=== PATIENT | female | born 1985 | race Caucasian/White ===

== ENCOUNTER 2020-05-19 11:24 | Emergency (ER) | payer OTHER, SELFPAY ==
[2020-05-19] VITALS (7 sets, daily range): BP systolic 127–140; BP diastolic 83–95; PULSE 67–81; RESP 16–18; TEMP 36.7; O2SAT 98–100
[2020-05-19 12:16] LABS: Basophils Percent Auto 0.4 % (0.2-1.2); Eosinophils Absolute Auto 0.1 K/mm3 (0-0.3); Eosinophils Percent Auto 2.3 % (0-4.4); Hematocrit 28.9 % (37.0-47.0); Hemoglobin 8.7 g/dL (12.0-15.0); Immature Granulocyte Absolute 0.01 K/mm3 (0.00-0.031); Immature Granulocyte Percent A 0.2 % (0-0.5); Immature Platelet Fraction Pct 7.7 % (0.9-11.2); Lymphocytes Absolute Auto 1.47 K/mm3 (0.9-3.2); Lymphocytes Percent Auto 30.2 % (18.3-44.2); Mean Corpuscular HGB Conc 30.1 g/dl (32-36); Mean Corpuscular Hemoglobin 22.8 pg (26-34); Mean Corpuscular Volume 75.7 fl (80-100); Mean Platelet Volume 13.3 fl (7.4-10.4); Monocytes Absolute Auto 0.2 K/mm3 (0.1-0.6); Monocytes Percent Auto 4.1 % (2.6-8.5); Neutrophils Absolute Auto 3.1 K/mm3 (1.3-6.7); Neutrophils Percent Auto 62.8 % (45.5-73.1); Platelet Count Result 192 k/mm3 (150-375); Red Blood Count 3.82 M/mm3 (4.2-5.4); Red Cell Distribution Width 16.6 % (11.5-14.5); White Blood Count 4.9 K/mm3 (4.5-10.0)
[2020-05-19 12:20] LABS: Add Urine Microscopic? YES; Appearance Urine Clear (Clear); Bacteria Urine Trace /hpf; Bilirubin Urine Negative (Negative); Blood Urine 2+ (Negative); Color Urine Straw (Yellow); Glucose Urine UA Negative (Negative); Ketones Urine Negative (Negative); Leukocyte Esterase Ur Trace LEU/UL (Negative); Mucus Urine Rare /lpf; Nitrate Urine Negative (Negative); Protein Urine Negative (Negative); Squamous Epithelial Cell Urine Moderate /hpf (Few); Urobilinogen Urine Negative mg/dL (<2.0)
[2020-05-19 12:24] LABS: INR 1.1; Prothrombin Time 13.8 Seconds (11.1-14.7)
[2020-05-19 12:25] LABS: Partial Thromboplastin Time 29.9 SECONDS (22.3-36.8)
[2020-05-19 12:28] LABS: Alanine Aminotransferase 14 U/L (4-35); Albumin Level 4.5 g/dL (3.5-5.1); Alkaline Phosphatase 67 U/L (38-126); Anion Gap 12.2 mmol/L (7-16); Aspartate Amino Transferase 24 U/L (14-36); Bilirubin,Total 0.4 mg/dL (0.2-1.3); Blood Urea Nitrogen 9 mg/dL (7-17); Carbon Dioxide 26 mmol/L (22-30); Chloride 104 mmol/L (98-107); Estimated CRCL calculation 63 ml/min; Estimated Glomerular Filt Rate > 60; Glucose 88 mg/dL (65-105); Potassium 3.2 mmol/L (3.4-5.0); Sodium 139 mmol/L (137-145)
--- NOTE | 2020-05-19 14:12 | ED.FEMALEGU ---
HPI - Female Genitourinary General Chief complaint: Vaginal Bleeding Stated complaint: HEAVY VAG BLEED, HX ANEMIA Time Seen by Provider: 05/19/20 11:50 Source: patient Mode of arrival: ambulatory Limitations: no limitations History of Present Illness HPI Narrative: Patient presents to the emergency department for evaluation of heavy menstrual bleeding and fatigue. Patient states that she typically has heavy menstrual periods which are managed by Dr. Sandra however she also feels that she was unable to follow-up with her in the office. Patient states her menstrual periods sometimes last 2 weeks at a time. She began that her current menstrual. Began on Tuesday and was very heavy and required her to change her pad every hour. Patient states yesterday her bleeding became less but she has noticed some fatigue so she wanted her blood work evaluated as she has a history of anemia. Patient reports having a tubal ligation socially denies thought of . Patient denies any fever, chills, nausea, vomiting, neurological deficits, weakness, chest pain, shortness of breath at this time. Patient states that she has been able to eat and drink normally. Patient denies any other concerns. Related Data Allergies Allergy/AdvReac Type Severity Reaction Status Date / Time No Known Allergies Allergy Unknown Verified 10/04/19 17:23 Review of Systems Review of Systems: Narrative: CONSTITUTIONAL: Reports fatigue denies fever, chills, or sweats. EYES: Denies visual changes, redness, or discharge. ENT: Denies rhinorrhea, congestion, sore throat, or otalgia. CARDIOVASCULAR: Denies chest pain, palpitations, or edema. RESPIRATORY: Denies cough or dyspnea. GASTROINTESTINAL: Denies abdominal pain, nausea, vomiting, or diarrhea. GENITOURINARY: Reports vaginal bleeding denies dysuria or hematuria. SKIN: Denies rash or itching. MUSCULOSKELETAL: Denies back pain, joint pain, or myalgia. NEUROLOGIC: Denies headache, numbness, dizziness, or weakness. PSYCHIATRIC: Denies anxiety or depression. [facility] Past Medical History Medical History (Updated 05/19/20 @ 14:14 by Maria Elena Freeman PA-C) Anemia Tubal ligation evaluation Social History Social History Gender identity (if verbalized by the patient): Female Exam Narrative: Exam Narrative: GENERAL: Well-appearing, well-nourished, and in no acute distress. HEAD: Normocephalic, atraumatic. EYES: PERRLA and EOMI. ENT: Nares clear, no rhinorrhea or epistaxis. Mucous membranes moist. Oropharynx without tonsillar hypertrophy exudate or other lesions. Bilateral TMs pearly gonzalez nonbulging NECK: Supple. No adenopathy or masses. CHEST: Clear to auscultation. No respiratory distress. No wheezes rales or rhonchi HEART: Regular rate and rhythm. ABDOMEN: Soft, nontender, nondistended, normal active bowel sounds. PELVIC: Cervix appears normal without cervical motion tenderness. There is minimal bleeding coming from the cervix and minimal small blood clots noted in the vaginal vault. EXTREMITIES: Normal range of motion. No edema. SKIN: Warm, dry, no rash. NEURO: No focal deficits. Alert and oriented x3. PSYCH: Normal mood and affect. Course Vital Signs Vital signs: Vital Signs Temperature 98.0 F 05/19/20 11:27 Pulse Rate 79 05/19/20 11:27 Respiratory Rate 16 05/19/20 11:27 Blood Pressure 134/88 05/19/20 11:27 Pulse Oximetry 100 05/19/20 11:27 Temperature 98.0 F 05/19/20 11:27 Pulse Rate 77 05/19/20 13:37 Respiratory Rate 18 05/19/20 13:37 Blood Pressure 128/88 05/19/20 13:37 Pulse Oximetry 98 05/19/20 13:37 MDM - Female Genitourinary MDM Narrative Medical decision making narrative: Patient vitals are stable. Patient does not have profuse vaginal bleeding. She did not have chest pain, shortness of breath, fever, chills she is not orthostatic. She is anemic but does not require transfusion at this time. Patient has
== END 2020-05-19 14:13 | disposition home or self-care (01) ==
PROVIDERS: Physician Assistant; Emergency Provider Emergency Medicine; PCP Family Medicine
DX: N93.9 Abnormal uterine and vaginal bleeding, unspecified (principal); D64.9 Anemia, unspecified
CPT/HCPCS: 36415; 80053; 81001; 81025; 85025; 85055; 85610; 85730; 99284

== ENCOUNTER 2020-09-09 16:24 | Emergency (ER) | payer OTHER, SELFPAY ==
--- NOTE | ~2020-09-09 | CT_ITS ---
EXAMINATION: CT abdomen pelvis wo con DATE: 09/09/2020 18:47 INDICATION: Right flank pain and nausea. TECHNIQUE: Computed tomography (CT) of the abdomen and pelvis was performed without intravenous contr ast. Automated exposure control and iterative reconstruction technique were employed. The dose-length product was 267.07 mGy-cm. COMPARISON: 01/17/2015 FINDINGS: Lung bases are clear. Heart size is normal. No pericardial or pleural effusion. Cholecystectomy clips at the gallbladder fossa. Liver, spleen, pancreas and bilateral adrenal glands are normal. Bilateral nonobstructing nephrolithiasis with 7 stones measuring up to 2 mm in the right kidney and at least 9 stones in the left kidney the largest measuring 3 mm. No hydronephrosis or stones seen along the cou rse of the ureters. There is cortical scarring at the left kidney likely represent sequela of prior i nfection or less likely infarction. Bladder, anteverted uterus and bilateral adnexa are unremarkable. A few phleboliths in the pelvis. Bowels including the appendix are normal. No free intraperitoneal g as or fluid. No pathologically enlarged abdominal or pelvic lymphadenopathy. Bones are unremarkable. IMPRESSION: 1. Bilateral nonobstructing nephrolithiasis. No ureteral stones or hydronephrosis. 2. Normal appendix and status post cholecystectomy. Reviewed, dictated and finalized at location H. BURNER IMPRESSION: 1. Bilateral nonobstructing nephrolithiasis. No ureteral stones or hydronephros is. 2. Normal appendix and status post cholecystectomy.
[2020-09-09 16:38] VITALS: BP 160/98; PULSE 95; RESP 14; TEMP 36.7; O2SAT 99
[2020-09-09 16:54] LABS: Add Urine Microscopic? NO; Appearance Urine Clear (Clear); Bilirubin Urine Negative (Negative); Blood Urine Negative (Negative); Color Urine Colorless (Yellow); Glucose Urine UA Negative (Negative); Ketones Urine Negative (Negative); Leukocyte Esterase Ur Negative LEU/UL (Negative); Nitrate Urine Negative (Negative); Protein Urine Negative (Negative); Specific Grav Ur 1.005 (1.001-1.035); Urobilinogen Urine Negative mg/dL (<2.0)
[2020-09-09] MEDS: KETOROLAC 30 MG/ML VIAL (*BKC) IM (18:33)
--- NOTE | 2020-09-09 19:11 | ED.ABDPAIN ---
HPI - Abdominal Pain General Chief Complaint: Urogenital-Female Stated Complaint: UTI symptoms Time Seen by Provider: 09/09/20 16:43 Source: patient Mode of arrival: ambulatory Limitations: no limitations History of Present Illness HPI narrative: Patient presents with chief complaint of right lower back/flank pain that began today today. Patient states she has a history of both urinary tract infections as well as kidney stones. Patient states she normally goes to the bathroom frequently so she has not seen a change in this. She denies bladder discomfort or noted blood in her urine. She denies dysuria. Patient states that she feels her symptoms are more similar to UTI versus kidney stones. She denies vomiting, diarrhea, abdominal pain. Patient denies she has a due to tubal ligation. Related Data Allergies Allergy/AdvReac Type Severity Reaction Status Date / Time No Known Allergies Allergy Unknown Verified 10/04/19 17:23 Review of Systems Review of Systems: Narrative: CONSTITUTIONAL: Denies fever, chills, or sweats. EYES: Denies visual changes, redness, or discharge. ENT: Denies rhinorrhea, congestion, sore throat, or otalgia. CARDIOVASCULAR: Denies chest pain, palpitations, or edema. RESPIRATORY: Denies cough or dyspnea. GASTROINTESTINAL: Denies abdominal pain, nausea, vomiting, or diarrhea. GENITOURINARY: Denies dysuria or hematuria. SKIN: Denies rash or itching. MUSCULOSKELETAL: Reports right flank and low back pain denies joint pain, or myalgia. NEUROLOGIC: Denies headache, numbness, dizziness, or weakness. PSYCHIATRIC: Denies anxiety or depression. [facility] Past Medical History Medical History (Updated 09/09/20 @ 19:15 by Maria Elena Freeman PA-C) Anemia Tubal ligation evaluation Social History Social History Gender identity (if verbalized by the patient): Female Exam Narrative: Exam Narrative: GENERAL: Well-appearing, well-nourished, and in no acute distress. HEAD: Normocephalic, atraumatic. EYES: PERRLA and EOMI. CHEST: Clear to auscultation. No respiratory distress. No wheezes rales or rhonchi HEART: Regular rate and rhythm. No murmur heard. Normal peripheral pulses. ABDOMEN: Soft, nontender even over the bladder, nondistended, normal active bowel sounds.Tenderness with percussion of right flank EXTREMITIES: Normal range of motion. No edema. SKIN: Warm, dry, no rash. NEURO: No focal deficits. Alert and oriented x3. PSYCH: Normal mood and affect. Course Vital Signs Vital signs: Vital Signs Temperature 98.1 F 09/09/20 16:38 Pulse Rate 95 09/09/20 16:38 Respiratory Rate 14 09/09/20 16:38 Blood Pressure 160/98 H 09/09/20 16:38 Pulse Oximetry 99 09/09/20 16:38 Temperature 98.1 F 09/09/20 16:38 Pulse Rate 95 09/09/20 16:38 Respiratory Rate 14 09/09/20 16:38 Blood Pressure 160/98 H 09/09/20 16:38 Pulse Oximetry 99 09/09/20 16:38 MDM - Abdominal Pain MDM Narrative Medical decision making narrative: Patient urine was negative for signs of urinary tract infection patient is now agreeable for CT scan to rule out kidney stone that she has a history. There are multiple nephrolithiasis noted on patient's CT however they are no engaged urolithiasis. Patient was confirmed with me for muscle spasm. Patient will be prescribed naproxen and cyclobenzaprine and instructed to follow-up with her primary care for further investigation. Differential Diagnosis Differential diagnosis: Likely abdominal pain, acute appendicitis, calculus of kidney, constipation, diverticulitis, endometriosis, gastroenteritis, pancreatitis and small bowel obstruction Lab Data Labs: Lab Results 09/09/20 Range/Units 16:46 Urine Color Colorless (Yellow) Urine Appearance Clear (Clear) Urine pH 6.0 (5.0-9.0) Ur Specific [place] 1.005 (1.001-1.035) Urine Protein Negative (Negative) mg/dL Urine Glucose (UA) Negative (Negativ
[2020-09-09 19:47] VITALS: BP 138/96; PULSE 83; RESP 18; TEMP 36.6; O2SAT 100
== END 2020-09-09 19:47 | disposition home or self-care (01) ==
PROVIDERS: Family Medicine; Emergency Provider Emergency Medicine; PCP Family Medicine
DX: M62.830 Muscle spasm of back (principal); N20.0 Calculus of kidney; Z86.2 Personal history of diseases of the blood and blood-forming organs and certain disorders involving the immune mechanism
CPT/HCPCS: 74176; 81003; 81025; 96372; 99284; J1885

== ENCOUNTER 2021-07-24 15:54 | Emergency (ER) | payer OTHER, SELFPAY ==
[2021-07-24 16:00] VITALS: BP 157/100; PULSE 98; RESP 14; TEMP 36.6; O2SAT 100
--- NOTE | 2021-07-24 18:06 | ED.GENADULT ---
HPI - General Adult General Chief complaint: Wound/Laceration Stated complaint: sore on back Time Seen by Provider: 07/24/21 17:32 Source: patient Mode of arrival: ambulatory Limitations: no limitations History of Present Illness HPI narrative: Patient is here for evaluation of a lesion on her back that is been there about a week. She said it started as a bump and then flattened out and now has a scab. It is painful to touch, and when you touch it she gets an electric-like feeling in her arms and her legs. She denies any fever, no itching. She did have chickenpox as a child. Onset (ago): week(s) Associated symptoms: denies other symptoms Related Data Allergies Allergy/AdvReac Type Severity Reaction Status Date / Time No Known Allergies Allergy Unknown Verified 10/04/19 17:23 Review of Systems Review of Systems: All systems reviewed & are unremarkable except as noted in HPI and below PMFSH Past Medical History Medical History Anemia Tubal ligation evaluation Social History Social History Gender identity (if verbalized by the patient): Female Exam Const: General: no acute distress and alert Orientation/consciousness: patient oriented x3 HENMT: Head: normal to inspection Eyes: Pupils: Equal, round and reactive pupils present Resp: Effort & Inspection: normal respiratory effort Cardio: Rate: regular rate Rhythm: regular rhythm Back/Spine/Pelvis: Back: no CVA tenderness Skin: General skin exam: normal color Wounds: wounds noted (healing lesions over L3-4. ~ 1 cm. ) Neuro: General: patient oriented x3 Extrem: General: normal to inspection Psych: Mental Status: mental status grossly normal Course Course Emergency Course: Discussed the possibility that this is an initial lesion associated with shingles with the patient. Recommend that she watch closely should she have any more lesions she should contact her physician right away. Other differential would be a healing abscess, there is no palpable circumference. At this time we will just treat with antibiotic ointment topically and follow. Vital Signs Vital signs: Vital Signs Temperature 36.6 C 07/24/21 16:00 Pulse Rate 98 07/24/21 16:00 Respiratory Rate 14 07/24/21 16:00 Blood Pressure 157/100 H 07/24/21 16:00 Pulse Oximetry 100 07/24/21 16:00 Temperature 36.6 C 07/24/21 16:00 Pulse Rate 98 07/24/21 16:00 Respiratory Rate 14 07/24/21 16:00 Blood Pressure 157/100 H 07/24/21 16:00 Pulse Oximetry 100 07/24/21 16:00 Medical Decision Making Vital Signs Vital Signs: Vital Signs Temperature 36.6 C 07/24/21 16:00 Pulse Rate 98 07/24/21 16:00 Respiratory Rate 14 07/24/21 16:00 Blood Pressure 157/100 H 07/24/21 16:00 Pulse Oximetry 100 07/24/21 16:00 Temperature 36.6 C 07/24/21 16:00 Pulse Rate 98 07/24/21 16:00 Respiratory Rate 14 07/24/21 16:00 Blood Pressure 157/100 H 07/24/21 16:00 Pulse Oximetry 100 07/24/21 16:00 Discharge Plan Discharge Clinical Impression: Skin lesion of back Patient Disposition: Home, Self-Care Condition: Stable Instructions: Antibiotic Form, Abrasion (ED) Additional Instructions: Etiology of your wound is unclear, as discussed watch closely for other lesions as this may be the beginning of a shingles outbreak. Should that occur please call your physician right away for further treatment. You may treat the wound right now with antibiotic ointment. Prescriptions: No Action fluticasone propionate 50 mcg/actuation spray,suspension 2 spray NASAL DAILY 14 Days Qty: 9.9 RF: 0 naproxen 500 mg tablet 500 mg PO BID PRN (Reason: pain) Qty: 20 RF: 0 cyclobenzaprine 10 mg tablet 10 mg PO TID PRN (Reason: muscle spasm) Qty: 20 RF: 0 Follow-up/Referrals: Harms,Josef Mills M.D. [Primary Care Provider] - Time o
[2021-07-24 18:40] VITALS: BP 160/70; PULSE 70; RESP 16; O2SAT 99
== END 2021-07-24 18:42 | disposition home or self-care (01) ==
PROVIDERS: Emergency Provider Emergency Medicine; PCP Family Medicine
DX: L98.9 Disorder of the skin and subcutaneous tissue, unspecified (principal); Z86.2 Personal history of diseases of the blood and blood-forming organs and certain disorders involving the immune mechanism
CPT/HCPCS: 99281

== ENCOUNTER 2021-10-08 16:04 | Emergency (ER) | payer OTHER, SELFPAY ==
[2021-10-08 16:07] VITALS: BP 169/121; PULSE 94; RESP 20; TEMP 36.3; O2SAT 100
[2021-10-08 16:25] VITALS: BP 161/100; PULSE 106; RESP 16; O2SAT 99
[2021-10-08 17:03] LABS: Anion Gap 10 mmol/L (8-16); Blood Urea Nitrogen 15 mg/dL (7-17); Calcium 10.7 mg/dL (8.4-10.2); Carbon Dioxide 28 mmol/L (22-30); Chloride 96 mmol/L (98-107); Estimated CRCL calculation 64 ml/min; Estimated Glomerular Filt Rate 56; Glucose 97 mg/dL (65-110); Magnesium 1.6 mg/dL (1.6-2.3); Potassium 2.9 mmol/L (3.4-5.0); Sodium 134 mmol/L (137-145)
--- NOTE | 2021-10-08 17:11 | ED.GENADULT ---
HPI - General Adult General Chief complaint: Recheck/Abnormal Lab/Rx Stated complaint: Nausea Time Seen by Provider: 10/08/21 16:12 History of Present Illness HPI narrative: Patient is a 36-year-old female who presents ER regarding her elevated blood pressures. She was at an urgent care earlier to receive a Covid test because she has been feeling nauseous and having diarrhea. She is not vaccinated and has been having some diarrhea. No runny nose or sore throat or cough. No shortness of breath. She is not vaccinated for Covid. Her rapid test was negative and nobody sent to PCR. She has no known exposures. She was told that her systolic and diastolic blood pressures were elevated she should be evaluated further. She has never been diagnosed with hypertension has never taken any medication for it. Related Data Allergies Allergy/AdvReac Type Severity Reaction Status Date / Time No Known Allergies Allergy Unknown Verified 10/04/19 17:23 Review of Systems Review of Systems: All systems reviewed & are unremarkable except as noted in HPI and below Constitutional: Constitutional: Denies chills, Denies fever(s) and Denies weakness ENT: Denies nasal congestion and Denies sore throat Cardiovascular: Cardiovascular: Denies chest pain, Denies rapid heart rate and Denies radiating jaw, neck or arm pain Respiratory: Respiratory: Denies cough, Denies dyspnea and Denies wheezing Gastrointestinal: Gastrointestinal: Denies abdominal pain, Reports diarrhea, Reports nausea and Denies vomiting Genitourinary: Genitourinary: Denies nocturia, Denies dysuria and Denies flank pain PMFSH Past Medical History Medical History (Updated 10/08/21 @ 17:27 by Luisito Coughlin MD) Anemia Tubal ligation evaluation Surgical History Surgical History (Updated 10/08/21 @ 17:27 by Luisito Coughlin MD) History of cholecystectomy Social History Social History Gender identity (if verbalized by the patient): Female Exam Narrative: GENERAL: Well-appearing, well-nourished, and in no acute distress. HEAD: Normocephalic, atraumatic. CHEST: Clear to auscultation. No respiratory distress. HEART: Regular rate and rhythm. Normal peripheral pulses. EXTREMITIES: Normal range of motion. No edema. SKIN: Warm, dry, no rash. NEURO: Alert and oriented x3. PSYCH: Normal mood and affect. Course Course Emergency Course: Patient informed of results. Discussed the hypokalemia as well as slight elevation of the kidney function. Blood pressure has been persistently in the 160s over 100s. Will start patient on amlodipine. Encouraged her to follow-up with her PCP for further evaluation and possible augmentation of medication. Vital Signs Vital signs: Vital Signs Temperature 97.4 F L 10/08/21 16:07 Pulse Rate 94 10/08/21 16:07 Respiratory Rate 20 10/08/21 16:07 Blood Pressure 169/121 H 10/08/21 16:07 Pulse Oximetry 100 10/08/21 16:07 Temperature 97.4 F L 10/08/21 16:07 Pulse Rate 106 H 10/08/21 16:25 Respiratory Rate 16 10/08/21 16:25 Blood Pressure 161/100 H 10/08/21 16:25 Pulse Oximetry 99 10/08/21 16:25 Medical Decision Making Vital Signs Vital Signs: Vital Signs Temperature 97.4 F L 10/08/21 16:07 Pulse Rate 94 10/08/21 16:07 Respiratory Rate 20 10/08/21 16:07 Blood Pressure 169/121 H 10/08/21 16:07 Pulse Oximetry 100 10/08/21 16:07 Temperature 97.4 F L 10/08/21 16:07 Pulse Rate 106 H 10/08/21 16:25 Respiratory Rate 16 10/08/21 16:25 Blood Pressure 161/100 H 10/08/21 16:25 Pulse Oximetry 99 10/08/21 16:25 Lab Data Result diagrams: 10/08/21 16:47 Labs: Lab Results 10/08/21 Range/Units 16:47 Sodium 134 L (137-145) mmol/L Potassium 2.9 L (3.4-5.0) mmol/L Chloride 96 L (98-107) mmol/L Carbon Dioxide 28 (22-30) mmol/L Anion Gap 10 (8-16) mmol/L BUN 15 D (7-17) mg/dL Creatini
== END 2021-10-08 17:39 | disposition home or self-care (01) ==
PROVIDERS: Emergency Provider Emergency Medicine; PCP Family Medicine
DX: I10 Essential (primary) hypertension (principal); E87.6 Hypokalemia; Z86.2 Personal history of diseases of the blood and blood-forming organs and certain disorders involving the immune mechanism
CPT/HCPCS: 36415; 80048; 83735; 99283

== ENCOUNTER 2021-10-11 18:29 | Emergency (ER) | payer OTHER, SELFPAY ==
[2021-10-11] VITALS (10 sets, daily range): BP systolic 144–176; BP diastolic 95–113; PULSE 80–101; RESP 10–49; TEMP 36.4; O2SAT 99–100
--- NOTE | ~2021-10-11 | XR_ITS ---
EXAMINATION: XR chest 2V DATE: 10/11/2021 19:05 INDICATION: Chest pain/tightness and right arm tingling TECHNIQUE: frontal and lateral views of the chest were obtained. COMPARISON: None FINDINGS: Couple small calcified nodules in the right lung consistent with old granulomatous disease. No other airspace opacities, pulmonary edema, pleural effusion or pneumothorax. The cardiomediastinal silhouet te is normal. Mild thoracic spondylosis. IMPRESSION: 1. No acute cardiopulmonary disease. Reviewed, dictated and finalized at location H. CHEESE WORKER
--- NOTE | ~2021-10-11 | CT_ITS ---
EXAMINATION: CTA chest PE protocol DATE: 10/12/2021 00:41 INDICATION: Chest pain. Shortness of breath. TECHNIQUE: Computed tomography angiography (CTA) of the chest was performed with 100 mL Omnipaque-350 intravenous contrast timed to evaluate the pulmonary arteries. Coronal maximum intensity projection 3D-reconstructions were created by the technologist. Automated exposure control and iterative reconst ruction technique were employed. The dose-length product was 274.35 mGy-cm. COMPARISON: CT abdomen and pelvis 09/09/2020 FINDINGS: The lungs demonstrate minimal atelectasis. Calcified right lung nodules are consistent with old granulomatous disease. No pleural effusion. The heart size is normal. No pericardial effusion. T here is no pulmonary embolus. There is diffuse hepatic steatosis. There is mild atrophy of left kidne y. There are multiple stones in the kidneys measuring up to 8 mm on the left. There is mild thoracic spondylosis. IMPRESSION: 1. No pulmonary embolus. Sensitivity and specificity are mildly decreased by motion artifact. 2. Diffuse hepatic steatosis. 3. Bilateral nonobstructing kidney stones. Reviewed, dictated and finalized at location B. ENSATION AND BENEFITS ADVISOR IMPRESSION: 1. No pulmonary embolus. Sensitivity and specificity are mildly decreased by mo tion artifact. 2. Diffuse hepatic steatosis. 3. Bilateral nonobstructing kidney stones.
--- NOTE | 2021-10-11 18:31 | ECG_ITS ---
Measurements Intervals [place] Rate: 106 P: 44 PA: 122 QRS: 54 QRSD: 85 T: 38 QT: 356 QTc: 473 Interpretive Statements SINUS TACHYCARDIA BASELINE ARTIFACT- V2-V3, V5 BORDERLINE ECG Electronically Signed On 10-11-2021 20:13:53 SDV PILOT/NAVIGATOR/DDS OPERATOR by Haroon Engel D.O.
[2021-10-11 18:59] LABS: Basophils Percent Auto 0.6 % (0.2-1.2); Eosinophils Absolute Auto 0.1 K/mm3 (0-0.3); Hematocrit 34.8 % (37.0-47.0); Hemoglobin 10.7 g/dL (12.0-15.0); Immature Granulocyte Absolute 0.02 K/mm3 (0.00-0.031); Immature Granulocyte Percent A 0.3 % (0-0.5); Mean Corpuscular HGB Conc 30.7 g/dl (32-36); Mean Corpuscular Hemoglobin 25.2 pg (26-34); Mean Corpuscular Volume 81.9 fl (80-100); Mean Platelet Volume 10.6 fl (7.4-10.4); Monocytes Absolute Auto 0.4 K/mm3 (0.1-0.6); Monocytes Percent Auto 6.2 % (2.6-8.5); Neutrophils Absolute Auto 5.4 K/mm3 (1.3-6.7); Neutrophils Percent Auto 77.9 % (45.5-73.1); Platelet Count Result 236 k/mm3 (150-375); Red Blood Count 4.25 M/mm3 (4.2-5.4); White Blood Count 6.9 K/mm3 (4.5-10.0)
[2021-10-11 19:08] LABS: Alanine Aminotransferase 46 U/L (4-35); Albumin Level 4.8 g/dL (3.5-5.1); Alkaline Phosphatase 95 U/L (38-126); Anion Gap 10 mmol/L (8-16); Aspartate Amino Transferase 54 U/L (14-36); Bilirubin,Total 0.4 mg/dL (0.2-1.3); Blood Urea Nitrogen 8 mg/dL (7-17); Calcium 8.7 mg/dL (8.4-10.2); Carbon Dioxide 25 mmol/L (22-30); Chloride 100 mmol/L (98-107); Estimated CRCL calculation 70 ml/min; Estimated Glomerular Filt Rate > 60; Glucose 105 mg/dL (65-110); Lipase 41 U/L (23-300); Potassium 3.1 mmol/L (3.4-5.0); Prothrombin Time 12.6 Seconds (11.1-14.7); Sodium 135 mmol/L (137-145)
[2021-10-11 19:09] LABS: Partial Thromboplastin Time 24.5 SECONDS (22.3-36.8)
[2021-10-11 19:20] LABS: Troponin I < 0.012 ng/mL (0.000-0.034)
[2021-10-11 22:58] LABS: Troponin I < 0.012 ng/mL (0.000-0.034)
[2021-10-11] MEDS: MORPHINE SULFATE (*CRX) 4 MG/ML INJ IV PUSH (23:34)
[2021-10-11] MEDS: ONDANSETRON INJ 4 MG/2 ML VIAL IV PUSH (23:43)
[2021-10-12] VITALS (15 sets, daily range): BP systolic 162–173; BP diastolic 85–109; PULSE 73–102; RESP 12–45; O2SAT 96–100
--- NOTE | 2021-10-12 00:01 | ED.GENADULT ---
HPI - General Adult General Chief complaint: Chest Pain Stated complaint: CP, tingling in arm, SOB Time Seen by Provider: 10/11/21 22:39 History of Present Illness HPI narrative: Patient is a 36-year-old female who presents ER with multiple complaints. Recently seen and evaluated for hypertension. She was started on amlodipine and found to be hypokalemic and started on potassium supplementation. She reports she has been taking these medications. She reports today she started having some chest discomfort centrally. Worse with movement and deep breath. She also developed some headache on the right side of her head and some tingling in her right arm. She is taking no pain medications. She has no fevers or chills or sweats. Chest pain is not worsened by exertion. Said no nausea or vomiting. She does endorse some acid reflux-like symptoms. Patient also notes she has been having some cramping right thigh over the last couple days. No lower extremity swelling. Related Data Home Medications Medication Instructions Recorded Confirmed citalopram mg 10/11/21 Allergies Allergy/AdvReac Type Severity Reaction Status Date / Time No Known Allergies Allergy Unknown Verified 10/11/21 22:40 Review of Systems Review of Systems: All systems reviewed & are unremarkable except as noted in HPI and below Constitutional: Constitutional: Denies chills, Denies fever(s) and Denies weakness ENT: Denies nasal congestion and Denies sore throat Cardiovascular: Cardiovascular: Reports chest pain, Denies rapid heart rate and Denies radiating jaw, neck or arm pain Respiratory: Respiratory: Denies cough and Denies dyspnea Gastrointestinal: Gastrointestinal: Denies abdominal pain, Denies nausea and Denies vomiting Neurologic: Reports headache(s), Denies focal weakness and Reports numbness PMFSH Past Medical History Medical History (Updated 10/12/21 @ 02:59 by Luisito Coughlin MD) Anemia Hypertension Tubal ligation evaluation Surgical History Surgical History (Updated 10/08/21 @ 17:27 by Luisito Coughlin MD) History of cholecystectomy Social History Social History Gender identity (if verbalized by the patient): Female Exam Narrative: GENERAL: Anxious-appearing, well-nourished, and in no acute distress. HEAD: Normocephalic, atraumatic. EYES: PERRLA and EOMI. ENT: Mucous membranes moist. CHEST: Clear to auscultation. No respiratory distress. HEART: Tachycardic and regular. Normal peripheral pulses. ABDOMEN: Soft, nontender, nondistended. EXTREMITIES: Normal range of motion. No edema. No tenderness of the right thigh despite reporting cramping. SKIN: Warm, dry, no rash. NEURO: Alert and oriented x3. PSYCH: Normal mood and affect. Course Course Emergency Course: Patient informed results. She is received morphine and Toradol. Headache markedly improved and no tingling in the arm. Patient's blood pressure has remained in the 160s systolic and diastolic over 100 which has been difficult for previously. She recommends she follow-up with her PCP for further evaluation and treatment. Vital Signs Vital signs: Vital Signs Temperature 97.5 F L 10/11/21 18:41 Pulse Rate 101 H 10/11/21 18:41 Respiratory Rate 17 10/11/21 18:41 Blood Pressure 144/95 H 10/11/21 18:41 Pulse Oximetry 99 10/11/21 18:41 Temperature 97.5 F L 10/11/21 18:41 Pulse Rate 73 10/12/21 02:47 Respiratory Rate 17 10/12/21 02:47 Blood Pressure 162/109 H 10/12/21 02:01 Pulse Oximetry 99 10/12/21 02:47 Medical Decision Making Vital Signs Vital Signs: Vital Signs Temperature 97.5 F L 10/11/21 18:41 Pulse Rate 101 H 10/11/21 18:41 Respiratory Rate 17 10/11/21 18:41 Blood Pressure 144/95 H 10/11/21 18:41 Pulse Oximetry 99 10/11/21 18:41 Temperature 97.5 F L 10/11/21 18:41 Pulse Rate 73 10/12/21 02:47 Respiratory Rate 17 10/12/21 02:47
[2021-10-12 00:06] LABS: D Dimer 0.87 ug/mL (<0.48)
[2021-10-12 01:18] LABS: Troponin I < 0.012 ng/mL (0.000-0.034)
[2021-10-12] MEDS: KETOROLAC 30 MG/ML VIAL (*BKC) IV PUSH (01:34)
== END 2021-10-12 03:14 | disposition home or self-care (01) ==
PROVIDERS: Emergency Medicine; Emergency Provider Emergency Medicine; PCP Family Medicine
DX: R07.89 Other chest pain (principal); R51.9 Headache, unspecified; D64.9 Anemia, unspecified; I10 Essential (primary) hypertension
CPT/HCPCS: 36415; 71046; 71275; 80053; 83690; 84484; 85025; 85380; 85610; 85730; 93005; 96374; 96375; 99284; J1885; J2270; J2405; Q9967

== ENCOUNTER 2021-12-25 12:53 | Emergency (ER) | payer OTHER, SELFPAY ==
--- NOTE | ~2021-12-25 | XR_ITS ---
EXAMINATION: XR chest 2V DATE: 12/25/2021 13:10 INDICATION: Chest pain. TECHNIQUE: Frontal and lateral views of the chest were obtained. COMPARISON: Chest 2 views 10/11/2021, chest CT 10/12/2021 FINDINGS: The chest demonstrates clear lungs without pneumonia, pleural effusion, or pneumothorax. Th e heart size is normal. Surgical clips in the right upper quadrant are likely from cholecystectomy. IMPRESSION: 1. No acute cardiopulmonary disease. Reviewed, dictated and finalized at location A. [employer]
[2021-12-25 12:52] VITALS: BP 181/115; PULSE 79; RESP 16; TEMP 37.1; O2SAT 100
--- NOTE | 2021-12-25 12:58 | ECG_ITS ---
Measurements Intervals [place] Rate: 80 P: 52 SD: 143 QRS: 41 QRSD: 89 T: 29 QT: 404 QTc: 467 Interpretive Statements SINUS RHYTHM NORMAL ECG BASELINE ARTIFACT COMPARED TO ECG 10/11/2021 18:38:05 HEART RATE HAS DECREASED Electronically Signed On 12-25-2021 15:22:57 [employer] SALES ENGINEER by Temo Lazcano M.D.
[2021-12-25 13:52] LABS: Basophils Percent Auto 0.4 % (0.2-1.2); Eosinophils Absolute Auto 0.1 K/mm3 (0-0.3); Eosinophils Percent Auto 2.4 % (0-4.4); Hematocrit 29.9 % (37.0-47.0); Hemoglobin 9.1 g/dL (12.0-15.0); Immature Granulocyte Absolute 0.02 K/mm3 (0.00-0.031); Immature Granulocyte Percent A 0.4 % (0-0.5); Lymphocytes Absolute Auto 0.95 K/mm3 (0.9-3.2); Lymphocytes Percent Auto 21.1 % (18.3-44.2); Mean Corpuscular HGB Conc 30.4 g/dl (32-36); Mean Corpuscular Hemoglobin 25.3 pg (26-34); Mean Corpuscular Volume 83.3 fl (80-100); Mean Platelet Volume 10.8 fl (7.4-10.4); Monocytes Absolute Auto 0.3 K/mm3 (0.1-0.6); Monocytes Percent Auto 6.2 % (2.6-8.5); Neutrophils Absolute Auto 3.1 K/mm3 (1.3-6.7); Neutrophils Percent Auto 69.5 % (45.5-73.1); Platelet Count Result 182 k/mm3 (150-375); Red Blood Count 3.59 M/mm3 (4.2-5.4); Red Cell Distribution Width 15.9 % (11.5-14.5); White Blood Count 4.5 K/mm3 (4.5-10.0)
--- NOTE | 2021-12-25 13:52 | ED.CHESTPAIN ---
HPI - Chest Pain General Chief Complaint: Chest Pain Stated Complaint: chest pain, mult c/o Time Seen by Provider: 12/25/21 13:16 History of Present Illness HPI narrative: 36-year-old female presents to the emergency room with acute onset of left anterior chest pain that radiates into her left axillary and left thoracic back. Patient states pain is worse with inspiration pain. describes pain is sharp pain. Admits to having a recent respiratory infection, is frequently coughing. Patient denies dizziness, nausea/vomiting, shortness of breath, or difficulty breathing. Related Data Home Medications Medication Instructions Recorded Confirmed citalopram mg 10/11/21 Allergies Allergy/AdvReac Type Severity Reaction Status Date / Time No Known Allergies Allergy Unknown Verified 10/11/21 22:40 Review of Systems Review of Systems: CONSTITUTIONAL: Denies fever, chills, or sweats. EYES: Denies visual changes, redness, or discharge. ENT: Denies rhinorrhea, congestion, sore throat, or otalgia. CARDIOVASCULAR: Reports chest pain. denies palpitations, or edema. RESPIRATORY: Denies cough or dyspnea. GASTROINTESTINAL: Denies abdominal pain, nausea, vomiting, or diarrhea. GENITOURINARY: Denies dysuria or hematuria. SKIN: Denies rash or itching. MUSCULOSKELETAL: Denies back pain, joint pain, or myalgia. NEUROLOGIC: Denies headache, numbness, dizziness, or weakness. PSYCHIATRIC: Denies anxiety or depression. [facility] Past Medical History Medical History Anemia Hypertension Tubal ligation evaluation Surgical History Surgical History History of cholecystectomy Social History Social History Gender identity (if verbalized by the patient): Female Exam Narrative: GENERAL: Well-appearing, well-nourished, and in no acute distress. HEAD: Normocephalic, atraumatic. EYES: PERRLA and EOMI. ENT: Nares clear, no rhinorrhea or epistaxis. Mucous membranes moist. NECK: Supple. No adenopathy or masses. No carotid bruits or JVD CHEST: Clear to auscultation. No respiratory distress. No wheezes rales or rhonchi HEART: Regular rate and rhythm. No murmur heard. Normal peripheral pulses. ABDOMEN: Soft, nontender, nondistended, normal active bowel sounds. EXTREMITIES: Normal range of motion. No edema. SKIN: Warm, dry, no rash. NEURO: No focal deficits. Alert and oriented x3. PSYCH: Normal mood and affect. Course Vital Signs Vital signs: Vital Signs Temperature 37.1 C 12/25/21 12:52 Pulse Rate 79 12/25/21 12:52 Respiratory Rate 16 12/25/21 12:52 Blood Pressure 181/115 H 12/25/21 12:52 Pulse Oximetry 100 12/25/21 12:52 Temperature 37.1 C 12/25/21 12:52 Pulse Rate 75 12/25/21 14:30 Respiratory Rate 16 12/25/21 14:30 Blood Pressure 160/77 H 12/25/21 14:30 Pulse Oximetry 100 12/25/21 14:30 MDM - Chest Pain MDM Narrative Medical decision making narrative: 36-year-old female presented to the emergency room with complaints of a acute left anterior chest pain that radiated into her shoulder, that was worse with inspiration. CBC shows a slight anemia. CMP unremarkable. Chest x-ray showed no acute abnormalities. Troponin was negative. Patient was given 30 mg of IV Toradol. States pain was relieved with the Toradol. Patient is also hypertensive due to medication noncompliance. Patient's blood pressure responded with clonidine. Medical Records Data Attestation: I reviewed the patient's medical records. Lab Data Attestation: I reviewed the patient's lab results. Result diagrams: 12/25/21 13:47 12/25/21 13:47 Labs: Lab Results 12/25/21 12/25/21 12/25/21 Range/Units 13:47 13:47 13:47 WBC 4.5 (4.5-10.0) K/mm3 RBC 3.59 L (4.2-5.4) M/mm3 Hgb 9.1 L (12.0-15.0) g/dL Hct 29.9 L (37.0-47.0) %
[2021-12-25 14:03] LABS: INR 1.1; Partial Thromboplastin Time 25.1 SECONDS (22.3-36.8); Prothrombin Time 13.3 Seconds (11.1-14.7)
[2021-12-25 14:09] LABS: Alanine Aminotransferase 36 U/L (4-35); Albumin Level 4.1 g/dL (3.5-5.1); Alkaline Phosphatase 86 U/L (38-126); Anion Gap 8 mmol/L (8-16); Aspartate Amino Transferase 52 U/L (14-36); Bilirubin,Total 0.4 mg/dL (0.2-1.3); Blood Urea Nitrogen 16 mg/dL (7-17); Calcium 8.5 mg/dL (8.4-10.2); Carbon Dioxide 28 mmol/L (22-30); Chloride 101 mmol/L (98-107); Estimated CRCL calculation 77 ml/min; Estimated Glomerular Filt Rate > 60; Glucose 99 mg/dL (65-110); Lipase 111 U/L (23-300); Sodium 137 mmol/L (137-145)
[2021-12-25 14:19] LABS: Troponin I < 0.012 ng/mL (0.000-0.034)
[2021-12-25 14:28] LABS: D Dimer 0.53 ug/mL (<0.48)
[2021-12-25] MEDS: KETOROLAC 30 MG/ML VIAL (*BKC) IV PUSH (14:29)
[2021-12-25] MEDS: cloNIDine HCL 0.1 MG TABLET PO (14:29)
[2021-12-25 14:30] VITALS: BP 160/77; PULSE 75; RESP 16; O2SAT 100
[2021-12-25 15:30] VITALS: BP 150/98; PULSE 89; RESP 16; O2SAT 100
== END 2021-12-25 15:31 | disposition home or self-care (01) ==
PROVIDERS: Emergency Medicine; Emergency Provider Nurse Practitioner Family; PCP Internal Medicine Geriatric Medicine
DX: R09.1 Pleurisy (principal); I10 Essential (primary) hypertension; D64.9 Anemia, unspecified
CPT/HCPCS: 36415; 71046; 80053; 83690; 84484; 85025; 85380; 85610; 85730; 93005; 96374; 99284; A9270; J1885

== ENCOUNTER 2022-02-06 13:37 | Emergency (ER) | payer OTHER, SELFPAY ==
[2022-02-06 13:40] VITALS: BP 110/77; PULSE 76; RESP 18; TEMP 36.4; O2SAT 99
--- NOTE | 2022-02-06 13:49 | ED.GENADULT ---
HPI - General Adult General Chief complaint: Upper Respiratory Infection Stated complaint: Sore Throat Time Seen by Provider: 02/06/22 13:49 Source: patient Mode of arrival: ambulatory Limitations: no limitations History of Present Illness HPI narrative: 36-year-old female patient presents to the [facility] with complaints of sore throat, congestion and cough for the past 2 days. Patient states she has not taken anything [id number] due to not have anything in her house and has no money at this time. Patient states she is not vaccinated against COVID and last time she had COVID was over 6 months ago. Denies getting a flu shot this year. Denies fevers at this time. Related Data Home Medications Medication Instructions Recorded Confirmed citalopram 40 mg PO DAILY 10/11/21 02/06/22 carvedilol 25 mg PO DAILY 02/06/22 02/06/22 clonidine HCl 0.1 mg PO TID PRN 02/06/22 02/06/22 lamotrigine 100 mg PO DAILY 02/06/22 02/06/22 Allergies Allergy/AdvReac Type Severity Reaction Status Date / Time No Known Allergies Allergy Unknown Verified 10/11/21 22:40 Review of Systems Review of Systems: CONSTITUTIONAL: Denies fever, chills, or sweats. EYES: Denies visual changes, redness, or discharge. ENT: Positive rhinorrhea, congestion, sore throat, denies otalgia. CARDIOVASCULAR: Denies chest pain, palpitations, or edema. RESPIRATORY: Positive cough, denies dyspnea. GASTROINTESTINAL: Denies abdominal pain, nausea, vomiting, or diarrhea. GENITOURINARY: Denies dysuria or hematuria. SKIN: Denies rash or itching. MUSCULOSKELETAL: Denies back pain, joint pain, or myalgia. NEUROLOGIC: Denies headache, numbness, or weakness. PSYCHIATRIC: Denies anxiety or depression. [facility] Past Medical History Medical History (Updated 02/06/22 @ 14:07 by MARIE Waddell) Anemia Anxiety Bipolar disorder Depression GERD (gastroesophageal reflux disease) Hypertension Kidney stones left nephrolithotomy Mitral valve prolapse Tubal ligation evaluation Surgical History Surgical History (Updated 02/06/22 @ 13:51 by MARIE Waddell) History of cholecystectomy Hx of cholecystectomy Social History Social History Gender identity (if verbalized by the patient): Female Comments At the time of my signature I agree with nursing past medical history, surgical, social, and family history. There is no relevant family history pertinent to the presenting complaint. Exam Narrative: GENERAL: Well-appearing, well-nourished, and in no acute distress. HEAD: Normocephalic, atraumatic. EYES: PERRLA and EOMI. ENT: Nares clear, no rhinorrhea or epistaxis. Mucous membranes moist. Posterior pharynx with erythema and 2+ tonsil enlargement noted. No exudates noted on exam. Bilateral TMs clear no erythema or foreign bodies in the canal. NECK: Supple. No lymphadenopathy CHEST: Clear to auscultation. No respiratory distress. HEART: Regular rate and rhythm. No murmur heard. Normal peripheral pulses. ABDOMEN: Soft, nontender, nondistended, normal active bowel sounds. EXTREMITIES: Normal range of motion. No edema. SKIN: Warm, dry, no rash. NEURO: No focal deficits. Alert and oriented x3. Course Course Level of Care: Express Care Visit Vital Signs Vital signs: Vital Signs Temperature 36.4 C L 02/06/22 13:40 Pulse Rate 76 02/06/22 13:40 Respiratory Rate 18 02/06/22 13:40 Blood Pressure 110/77 02/06/22 13:40 Pulse Oximetry 99 02/06/22 13:40 Temperature 36.4 C L 02/06/22 13:40 Pulse Rate 76 02/06/22 13:40 Respiratory Rate 18 02/06/22 13:40 Blood Pressure 110/77 02/06/22 13:40 Pulse Oximetry 99 02/06/22 13:40 Vital signs reviewed Medical Decision Making Differential Diagnosis Differential Diagnosis: Differential diagnosis: Viral pharyngitis, pharyngitis, group A strep, infectious mononucleosis, gonococcal pharyngitis, exudative pharyngitis, oral candidiasis. Chron
== END 2022-02-06 14:16 | disposition home or self-care (01) ==
PROVIDERS: Emergency Provider Nurse Practitioner Family; PCP Internal Medicine Geriatric Medicine
DX: J06.9 Acute upper respiratory infection, unspecified (principal); Z20.822 Contact with and (suspected) exposure to COVID-19; K21.9 Gastro-esophageal reflux disease without esophagitis; I10 Essential (primary) hypertension; I34.1 Nonrheumatic mitral (valve) prolapse; F41.9 Anxiety disorder, unspecified; F31.9 Bipolar disorder, unspecified; Z86.16 Personal history of COVID-19; Z28.310 Unvaccinated for COVID-19
CPT/HCPCS: 87081; 87426; 87804; 87880; 99213; C9803; G0463

== ENCOUNTER 2022-12-09 15:42 | Outpatient (CLI) | payer OTHER, SELFPAY ==
--- NOTE | ~2022-12-09 | CT_ITS ---
EXAMINATION: CT abdomen pelvis w con DATE: 12/09/2022 16:22 INDICATION: Acute bilateral flank pain. TECHNIQUE: Computed tomography (CT) of the abdomen and pelvis was performed with 100 mL Omnipaque 350 intravenous contrast. Automated exposure control and iterative reconstruction technique were employe d. The dose-length product was 206.07 mGy-cm. COMPARISON: CT abdomen and pelvis 09/09/2020 FINDINGS: The visualized portions of the lung bases are clear without pneumonia or pleural effusion. The heart size is normal. No pericardial effusion. The liver demonstrates focal steatosis adjacent to the false form ligament. There is mild splenomegaly. There are changes of cholecystectomy. The pancr eas and adrenal glands are normal. There is mild atrophy of left kidney. There are cysts in the kidne ys measuring up to 10 mm on the left. There are 1 mm and 2 mm stones in right kidney. There are multi ple stones in left kidney measuring up to 7 mm. There is urothelial thickening involving the renal pe lvises bilaterally, consistent with pyelitis. There is diffuse bladder wall thickening, consistent wi th cystitis. There are no dilated loops of bowel. The appendix is not visualized. There are no pathol ogically enlarged lymph nodes. There is physiologic fluid in the pelvis. There is mild lumbar spondyl osis. IMPRESSION: 1. Cystitis and bilateral pyelitis. 2. Bilateral nonobstructing kidney stones. Reviewed, dictated and finalized at location A. TENANCE SERVICE TECHNICIAN
== END 2022-12-09 15:43 | disposition home or self-care (01) ==
PROVIDERS: PCP Internal Medicine Geriatric Medicine
DX: R10.9 Unspecified abdominal pain (principal); M54.9 Dorsalgia, unspecified; N30.90 Cystitis, unspecified without hematuria; N12 Tubulo-interstitial nephritis, not specified as acute or chronic; N20.0 Calculus of kidney
CPT/HCPCS: 74177; Q9967